=== PATIENT | male | born 1945 | race African-American/Black ===

== ENCOUNTER 2022-07-25 16:30 | Emergency (ER) | payer MEDICAID, MEDICARE ==
[~2022-07-25] VITALS: Ht 180.3 cm; Wt 75.0 kg
[~2022-07-25 16:30] MED LIST: AMLO5TAB4 PO; FLUC200T51 PO; HYDR25TA PO; TAMS-11 PO
[2022-07-25] MEDS ORDERED: ONDANSETRON HCL 4MG/2ML INJ IV STA (17:03)
[2022-07-25] MEDS ORDERED: MORPHINE SULFATE 4 MG/ML CPJ (NOT FOR IM USE) IV STA (17:03)
[2022-07-25] MEDS ORDERED: SODIUM CHLORIDE 0.9% 1,000 ML IV ONE (17:15)
[2022-07-25 19:28] LABS: BASOPHILS % 0.6 % (0.0-2.0); EOSINOPHILS % 0.7 % (0.0-5.0); HEMATOCRIT. 36.2 % (42.0-52.0); HEMOGLOBIN. 12.2 g/dL (14.0-18.0); LYMPHOCYTES % 21.1 % (20.0-50.0); MEAN CORPUSCULAR HEMOGLOBIN 30.2 pg (28.0-32.0); MEAN CORPUSCULAR VOLUME 89.5 fL (80.0-94.0); MEAN PLATELET VOLUME 8.5 fl (7.4-10.4); MONOCYTES % 6.8 % (2.0-8.0); NEUTROPHILS % 70.8 % (40.0-76.0); PLATELET 144 x1000/uL (130-400); RED BLOOD CELL COUNT 4.04 mill/uL (4.7-6.1); RED CELL DISTRIBUTION WIDTH 15.2 % (11.6-14.6)
[2022-07-25 19:40] LABS: CHLORIDE 105 mEq/L (98-107)
[2022-07-25] MEDS ORDERED: IBUP-2028 MT (21:57)
[2022-07-25 22:00] VITALS: BP 128/70
[2022-07-25 22:27] LABS: CLARITY URINE CLEAR (CLEAR); COLOR URINE YELLOW (YELLOW); KETONES URINE NEGATIVE (NEGATIVE); LEUKOCYTE ESTERASE URINE NEGATIVE (NEGATIVE); NITRITE URINE NEGATIVE (NEGATIVE); OCCULT BLOOD URINE NEGATIVE (NEGATIVE); PROTEIN URINE NEGATIVE (NEGATIVE); SPECIFIC GRAVITY URINE 1.011 (1.005-1.030); UROBILINOGEN URINE 0.2 E.U./dL (0.2-1.0)
== END 2022-07-25 22:30 | disposition home or self-care (01) ==
LOC: ER 16:45
DX: K80.20 Calculus of gallbladder without cholecystitis without obstruction (principal); J45.909 Unspecified asthma, uncomplicated; I10 Essential (primary) hypertension; Z79.899 Other long term (current) drug therapy
CPT/HCPCS: 36415; 71045; 74176; 76705; 80048; 80053; 81003; 83690; 84484; 85025; 93005; 96360; 99285; J7030; J2270; J2405

== ENCOUNTER 2024-03-09 00:09 | Emergency (ER) | payer MEDICARE, MEDICAID ==
[~2024-03-09] VITALS: Ht 172.7 cm; Wt 73.0 kg
[~2024-03-09 00:09] MED LIST changes: +IBUP-2028 MT
[2024-03-09 00:18] VITALS: BP 150/68; PULSE 62; RESP 15; TEMP 98.6; O2SAT 98
== END 2024-03-09 03:38 | disposition left against medical advice (07) ==
LOC: ER 00:09
DX: R10.9 Unspecified abdominal pain (principal); Z53.21 Procedure and treatment not carried out due to patient leaving prior to being seen by health care provider